=== PATIENT | male | born 1945 | race Caucasian/White ===

== ENCOUNTER 2022-10-15 15:00 | Outpatient (CLI) | payer OTHER, SELFPAY ==
--- NOTE | 2022-10-15 15:30 | CRLHL7_ITS ---
For Patients: As a result of the Century Cures Act, medical imaging exams and procedure reports are released immediately into your electronic medical record. You may view this report before your referring provider. If you have questions, please contact your health care provider. INDICATION: Cervical radiculopathy, left-sided. TECHNIQUE: Multisequence MRI of the cervical spine prior to and following administration of 15 mL gadolinium based intravenous contrast. COMPARISON: None available. FINDINGS: Grade 1 anterolisthesis of C4 on C5 measuring approximately 3 millimeters. 4 mm retrolisthesis at C3-C4 and 2 mm retrolisthesis at C6-C7. Vertebral body heights are maintained. No T1 hypointense lesion is identified. Multilevel intervertebral disc height loss is most pronounced at C3-C4. The cervical spinal cord is normal in signal intensity. There is no evidence of abnormal intra or extramedullary contrast enhancement. Evaluation of the individual levels demonstrates: C2-C3: No significant spinal canal or neural foraminal stenosis. C3-C4: Moderate-severe spinal canal stenosis resulting from a posterior disc osteophyte complex and ligamentum flavum hypertrophy. Severe left and moderate-severe right neural foraminal narrowing from combined uncovertebral and facet joint arthrosis. C4-C5: Moderate spinal canal stenosis from a posterior disc osteophyte complex and ligamentum flavum hypertrophy. Moderate-severe left and moderate right neural foraminal narrowing from combined uncovertebral and facet joint hypertrophy. C5-C6: Mild spinal canal stenosis from symmetric disc bulge and ligamentum flavum hypertrophy. Severe right and moderate left neural foraminal narrowing predominantly from uncovertebral spurring. C6-C7: Mild spinal canal stenosis from symmetric disc bulge and ligamentum flavum hypertrophy. Severe right and moderate severe left neural foraminal narrowing predominately from uncovertebral spurring. C7-T1: Symmetric disc bulge without significant spinal canal or neural foraminal stenosis. IMPRESSION: 1. Advanced spondylosis with multilevel intervertebral disc height loss most pronounced at the C3-C4. 2. At C3-C4, grade 1 anterolisthesis, moderate-severe spinal canal stenosis, severe left neural foraminal narrowing, and moderate-severe right neural foraminal narrowing. 3. At C4-C5, moderate spinal canal stenosis, moderate-severe left neural foraminal narrowing, and moderate right neural foraminal narrowing. 4. At C5-C6 and C6-C7, mild spinal canal stenosis, severe right neural foraminal narrowing, and moderate left neural foraminal narrowing. Dictated by Teo Zendejas MD @ 10/16/2022 10:16:53 AM (Electronically Signed)
== END 2022-10-15 15:01 | disposition home or self-care (01) ==
PROVIDERS: Visit Provider Internal Medicine
DX: M54.12 Radiculopathy, cervical region (principal); M47.892 Other spondylosis, cervical region; M48.02 Spinal stenosis, cervical region
CPT/HCPCS: 72156; A9575